=== PATIENT | male | born 1995 | race Caucasian/White ===

== ENCOUNTER 2018-08-19 15:04 | Inpatient (IN) | payer MEDICAID ==
[~2018-08-19] VITALS: Ht 147.3 cm; Wt 33.6 kg
[2018-08-19 15:15] VITALS: BP 126/71
--- NOTE | 2018-08-19 15:25 | NUR ---
PT TO ER BED 6
--- NOTE | 2018-08-19 15:25 | NUR ---
PT WHEELCHAIRED ONTO BED BY PARENTS
--- NOTE | 2018-08-19 15:40 | NUR ---
BIB PARENTS WITH HISTORY OF CPJARAD NON VERBAL AT BASELINE. PARENTS STATE HE HAS BEEN COUGHING AND HAS HAD A FEVER SINCE LAST NIGHT. PARENTS STATES THAT "THEY CAN TELL HE IS IN PAIN". FLACC 0 AT THIS TIME. PATIENT SITTING UP IN BED. PLACED ON 2L NC. SPO2 AT 97%.
[2018-08-19] MEDS ORDERED: NACL 0.9% 2,000 ML IV SCH (16:21)
[2018-08-19] MEDS ORDERED: LORazepam 2 MG/ML VIAL IVP ONE (16:25)
[2018-08-19] MEDS ORDERED: PIPERACILLIN/TAZOBACTAM 3.375 GM in DEXT 5% MINI-BAG PLUS 50 ML IV ONE (16:25)
[2018-08-19] MEDS ORDERED: ALBUTEROL SULFATE/IPRATROPIU 3 ML SOL IH ONE (16:25)
[2018-08-19] MEDS ORDERED: IBUPROFEN CHILDRENS 100 MG/5 ML UDC PO ONE (16:25)
--- NOTE | 2018-08-19 16:25 | NUR ---
PATIENT GIVEN MOTRIN THROUGH PATENT G TUBE. FLUSHES EASILY; NO RESIDUAL NOTED.
--- NOTE | 2018-08-19 16:35 | NUR ---
attempted to obtain iv access unable to obtain. asked for assistance from charge nurse rn.
[2018-08-19] MEDS ORDERED: PIPERACILLIN/TAZOBACTAM 3.375 GM VIAL IV ONE (16:58)
[2018-08-19] MEDS ORDERED: NACL 0.9% 1,000 ML IV SCH (17:26)
[2018-08-19] MEDS ORDERED: MORPHINE SULFATE 2 MG/ML SYR IVP PRN (17:30)
[2018-08-19] MEDS ORDERED: ZOLPIDEM 5 MG TAB PO PRN (17:30)
[2018-08-19] MEDS ORDERED: LORazepam 2 MG/ML VIAL IM/IVP PRN (17:30)
[2018-08-19] MEDS ORDERED: ONDANSETRON 4 MG/2 ML VIAL IM/IVP PRN (17:30)
[2018-08-19] MEDS ORDERED: HYDROcodone/APAP 5/325 MG 1 TAB TAB PO PRN (17:30)
[2018-08-19] MEDS ORDERED: DOCUSATE SODIUM 100 MG GELCAP PO PRN (17:30)
--- NOTE | 2018-08-19 17:30 | NUR ---
spoke with admitting residents who stated they would obtain a central line when the patient made it to the floor. will not give any IV medications ordered. Dr. Green made aware.
[2018-08-19 17:47] LABS: BASOPHILS % (AUTO) 0.5 % (0.0-2.0); EOSINOPHILS % (AUTO) 0.5 % (0.0-4.0); HEMATOCRIT 41.4 % (36-52); HEMOGLOBIN 13.6 g/dL (12.0-18.0); LYMPHOCYTES # (AUTO) 0.3 K/uL (2.0-11.5); LYMPHOCYTES % (AUTO) 3.4 % (20.5-51.1); MEAN CORPUSCULAR HEMOGLOBIN 32 pg (27-31); MEAN CORPUSCULAR HGB CONC 33 g/dL (33-37); MEAN CORPUSCULAR VOLUME 96.6 fL (80-94); MONOCYTES # (AUTO) 0.8 K/uL (0.8-1.0); MONOCYTES % (AUTO) 9.8 % (1.7-9.3); NEUTROPHILS # (AUTO) 7.3 K/uL (1.8-7.7); NEUTROPHILS % (AUTO) 85.8 % (42.2-75.2); PLATELET COUNT (AUTO) 107 K/uL (140-450); RED BLOOD CELL COUNT(AUTO) 4.29 MIL/uL (4.20-6.10); RED CELL DISTRIBUTION WIDTH 13.7 % (11.6-13.7); WHITE BLOOD COUNT (AUTO) 8.6 K/uL (4.8-10.8)
[2018-08-19 17:57] LABS: ANION GAP 12.6 (8-16); CARBON DIOXIDE 30.3 mmol/L (21-32); CREATININE 1.1 mg/dL (0.7-1.3); POTASSIUM 3.9 mmol/L (3.5-5.1)
[2018-08-19 18:03] LABS: ALBUMIN 3.4 g/dL (3.4-5.0); TOTAL BILIRUBIN 0.2 mg/dL (0.0-1.0)
[2018-08-19 18:05] LABS: PROTHROMBIN TIME 13.7 secs (10.8-13.4)
[2018-08-19 18:27] LABS: MAGNESIUM 2.1 mg/dL (1.8-2.4); PHOSPHORUS 3.8 mg/dL (2.5-4.9); THYROID STIMULATING HORMONE 0.55 uIU/mL (0.34-3.74)
[2018-08-19 18:30] VITALS: BP 104/59
--- NOTE | 2018-08-19 18:30 | NUR ---
RECEIVED REPORT FROM ED RN. DX PNA. COARSE LUNG SOUNDS. TACHYCARDIC. NO S/S ACUTE DISTRESS. SATURATING WELL ON 4L NC. NO IV ACCESS- AWARE. PER ED RN, WILL PLACE CENTRAL LINE. INTRODUCED SELF AND EXPLAINED POC TO FAMILY MEMBERS AT BEDSIDE. ALL SAFETY PRECAUTIONS IN PLACE, WILL CONTINUE TO MONITOR.
--- NOTE | 2018-08-19 18:30 | NUR ---
PATIENT ADMITTED TO THE CA[facility] OF DR MARTIN ON TELE FLOOR ROOM 122-B. REPORT GIVEN TO CHARLA ALCANTAR, PATIENT STABLE DURING TRANSFER.
--- NOTE | 2018-08-19 18:39 | NUR ---
UNABLE TO ADMINISTER ANY IV MEDICATIONS. NO IV ACCESS AVAILABLE. AWARE AND PLAN TO PLACE CENTRAL LINE. DR. NAYLOR AT BEDSIDE NOW TO ASSESS PT AND SPEAK WITH FAMILY.
--- NOTE | 2018-08-19 19:02 | NUR ---
NOTIFIED DR. NAYLOR THAT INFLUENZA SWAB NOT COLLECTED. DR. NAYLOR TO RE-ORDER.
--- NOTE | 2018-08-19 19:30 | NUR ---
ASSUMED CARE OF PATIENT. ADMITTED TO 122B VIA GURNEY FROM ER. SEE ADMISSION ASSESSMENT AND HISTORY. CARE BOARD UPDATED. PLAN OF CARE DISCUSSED WITH FAMILY MEMBER. CALL LIGHT WITHIN REACH.
--- NOTE | 2018-08-19 19:41 | NUR ---
ENDORSED POC TO AUTOMATED TELLER MANAGER RN. PT IN STABLE CONDITION. Addendum: 08/19/18 at 1949 by Karine Pollard Meng RN ENDORSED IV INSERTION.
[2018-08-19] MEDS ORDERED: CLON1TAB GT (19:54)
[2018-08-19] MEDS ORDERED: [UNRECOGNIZED DRUG - CODE] GT (19:54)
[2018-08-19] MEDS ORDERED: BACL10TA4 GT (19:54)
[2018-08-19] MEDS ORDERED: CARB100S PO (19:54)
--- NOTE | 2018-08-19 20:00 | NUR ---
PERICAR DONE, REPOSITIONED BY LINOTYPE WORKER. HOB ELEVATED AT ALL TIMES. VITAL SIGNS STABLE. CALL LIGHT WITHIN REACH.
[2018-08-19] MEDS: PIPER/TAZO 3.375GM/D5W PREMIX 50 ML IV SCH (20:57)
[2018-08-19] MEDS: clonazePAM 0.5 MG TAB GT SCH (20:59)
[2018-08-19] MEDS: BACLOFEN 10 MG TAB GT SCH (20:59)
[2018-08-19] MEDS: DEXT 5% / NACL 0.45% 1,000 ML IV SCH (20:59)
--- NOTE | 2018-08-19 21:30 | NUR ---
ATTEMPTED TO DRAW BLOOD BY SLA, TRAVEL CONSULTANT, UNSUCCESSFUL, AND TRY AGAIN, PATIENT FATHER VERBALIZED "YOU DONT KNOW WHAT YOU ARE DOING AND REFUSED.
--- NOTE | 2018-08-19 23:00 | NUR ---
SECOND ATTEMPT TO DRAW LACTIC ACID ORDERED BY RAY PERSONNEL ADVISER, UNSUCCESSFUL. DR. NAYLOR RESIDENT MD MADE AWARE.
[2018-08-19 23:54] VITALS: BP 116/70
--- NOTE | 2018-08-20 | NUR ---
VITALS SIGNS STABLE. NO COMPLAINS. AFEBRILE. NOTED. CALL LIGHT WITHIN REACH.
--- NOTE | 2018-08-20 02:57 | NUR ---
I WAS CALLED FOR THE PT IN ROOM 122, BECAUSE HIS MOTHER WANTS THE HHNTX, BUT PT IS NOT WHEEZING , BS ARE CLEAR, ONLY LIGHT CONGESTION AND PLACE PT ON OX WITH WATER HUMIDITY 2 L NC.
[2018-08-20] MEDS: PIPER/TAZO 3.375GM/D5W PREMIX 50 ML IV SCH ×3 (04:25→20:47)
[2018-08-20 04:35] VITALS: BP 95/53
--- NOTE | 2018-08-20 07:20 | NUR ---
RECEIVED PT REPORT AT BEDSIDE. PT IS AWAKE IN BED, MOM AT BEDSIDE. MITTEN NOTED ON THE R HAND. IV SITE NOTED ON R FA, 24 G, INFUSING D5 1/2 NS 80 ML/HR. PT ON 2 L HUMIDIFIED O2 NC. PT HAS A G-TUBE SITE THROUGH WHICH ALL MEDICATIONS ARE ADMINISTERED. FLU VACCINE IS UP TO DATE. FALL PRECAUTIONS IN PLACE. WILL CONTINUE TO MONITOR PT.
--- NOTE | 2018-08-20 07:21 | NUR ---
ENDORSED CARE AT BEDSIDE WITH JOSE MANUEL DUNHAM, PATIENT IN STABLE CONDITION.
--- NOTE | 2018-08-20 07:53 | NUR ---
PATIENT HAS BEEN SCREENED AND CATEGORIZED HIGH NUTRITION RISK. PATIENT WILL BE SEEN WITHIN 1-2 DAYS OF ADMISSION. 08/20/18-08/21/[address]
[2018-08-20] MEDS: clonazePAM 0.5 MG TAB GT SCH ×2 (07:58→20:45)
[2018-08-20] MEDS: BACLOFEN 10 MG TAB GT SCH ×2 (07:58→20:43)
[2018-08-20] MEDS: ACETAMINOPHEN 325 MG TAB PO PRN ×2 (07:58→22:47)
[2018-08-20 08:00] VITALS: BP 96/69
--- NOTE | 2018-08-20 08:30 | NUR ---
PT HAS FEVER 101.0. TYLENOL ADMINISTERED AND ICE PACK PLACED. CHARGE NURSE AWARE, WILL NOTIFY MD. PT'S MOM IS AT BEDSIDE.
[2018-08-20] MEDS: DEXT 5% / NACL 0.45% 1,000 ML IV SCH ×2 (09:15→21:45)
[2018-08-20] MEDS: ALBUTEROL SULFATE/IPRATROPIU 3 ML SOL IH PRN (10:04)
--- NOTE | 2018-08-20 10:15 | NUR ---
PARENTS AT BEDSIDE AT THIS TIME
--- NOTE | 2018-08-20 10:35 | NUR ---
RECHECKED PT'S TEMPERATURE, 99.6 AT THIS TIME (TEMPORAL). RECEIVED CALL FROM LAB, PT IS POSITIVE FOR FLU A, NEGATIVE FOR FLU B. DROPLET ISOLATION IN PLACE. IS AWARE. ALSO AWARE OF PT'S FEVER OF 101 THIS AM.
[2018-08-20 12:00] VITALS: BP 94/55
--- NOTE | 2018-08-20 12:39 | NUR ---
CONSENT OBTAINED FROM PT'S FATHER FOR R IJ CENTRAL LINE PLACEMENT.
--- NOTE | 2018-08-20 14:38 | NUR ---
PT'S TEMPERATURE IS 99.5 AT THIS TIME. ICE PACK PLACED ON FOREHEAD, AND ROOM COOLING DOWN. FATHER AT BEDSIDE. WILL CONTINUE TO MONITOR.
[2018-08-20] MEDS ORDERED: LORazepam 2 MG/ML VIAL IVP SCH (15:00)
--- NOTE | 2018-08-20 15:16 | NUR ---
08/20/18 RD INITIAL ASSESSMENT COMPLETED PLEASE REFER TO NUTRITION ASSESSMENT UNDER CARE ACTIVITY FOR ESTIMATED NUTRITIONAL NEEDS. 1. RECOMMEND ARMANI 1.2 AT 40 ML/HR AND 60 ML WATER FLUSH Q4H -THIS WILL PROVIDE A VOLUME OF 960 ML, 1152 KCAL, 72 GM OF PROTEIN AND 1138 ML FLUID. IT MEETS 100% OF THE ENERGY AND PROTEIN REQUIREMENT. 2. RECOMMEND MVI 3. RD TO FOLLOW-UP 2-3 DAYS, HIGH RISK ANDERSON BOO, CONSUELO
[2018-08-20 16:00] VITALS: BP 100/69
--- NOTE | 2018-08-20 16:09 | NUR ---
PT HAVING US GUIDED R IJ CENTRAL LINE PLACEMENT AT THIS TIME BY DR MENDIOLA.
--- NOTE | 2018-08-20 19:20 | NUR ---
RECEIVED ENDORSEMENT FROM DAYSHIFT RN AT BEDSIDE FOR CONTINUITY OF CARE, PT IN STABLE CONDITION.
--- NOTE | 2018-08-20 19:20 | NUR ---
PT ENDORSED TO RESEARCH ANTHROPOLOGIST IN STABLE CONDITION.
--- NOTE | 2018-08-20 19:30 | NUR ---
ASKED DR NAYLOR TO RESTART RESTRAINT ORDER FOR PT AT 19:50. PT STILL PULLING AT IV LINES WHEN AWAKE.
--- NOTE | 2018-08-20 20:00 | NUR ---
PT IN BED WITH ALL FALLS, SEIZURE AND ASPIRATION PRECAUTIONS IN PLACE. PT IS AOX1 HE HAS A TRIPLE LUMEN IJ ON RIGHT SIDE OF NECK. PT HAS MITT IN PLACE TO PREVENT PULING AT IV LINE AND CENTRAL LINE. IV FLUID OF D51/2 NS AT 80MLS/HR RUNNING ORDERED. PT ALSO HAS G TUBE IN PLACE AND FLUSHED PATENT.V/S FOLLOWS T 100.3 P 120 R 18 B/P 108/80 02 96% WITH 4LITERS VIA N/C. FAMILY AT BEDSIDE.
[2018-08-20] MEDS: carBAMazepine 200 MG TAB PO SCH (20:48)
[2018-08-20] MEDS: OSELTAMIVIR PHOSPHATE 75 MG CAP PO SCH (20:48)
--- NOTE | 2018-08-20 21:00 | NUR ---
PT GIVEN DUE MEDS OF KLONOPIN, BACLOFEN, TAMIFLU AND ZOSYN IV ABT ORDERED. DR. NAYLOR CONCERNED THAT PT AGITATION IS DUE TO CENTRAL LINE PLACEMENT. DR. NAYLOR TO ORDER ATIVAN AND SHE WILL PULL OUT CATHETER 2CM AND RECHECK PLACEMENT. ATIVAN WAS ORDERED TO BE GIVEN BEFORE DOCTOR EXAMINES CENTRAL LINE.
[2018-08-20] MEDS ORDERED: LORazepam 2 MG/ML VIAL IM/IVP SCH (22:00)
--- NOTE | 2018-08-20 22:45 | NUR ---
DR. NAYLOR AT BEDSIDE EXAMINING CENTRAL LINE. PT GIVEN 1MG OF ATIVAN VIA CENTRAL LINE IJ. AFTER GOWNING AND GLOVING, DR. NAYLOR PULLED OF DRESSING AND PULLED CENTRAL CATH OUT 2CM. DR. NAYLOR ORDERED X-RAY TO BE DONE AT BEDSIDE STAT.
--- NOTE | 2018-08-20 23:00 | NUR ---
STAT X-RAY DONE AT BEDSIDE. PT ALSO GIVEN PRN MEDS OF TYLENOL FOR MILD DISCOMFORT, COLACE DUE TO FAMILY C/O OF NO BM OVER 24HRS. ICE PACKS PROVIDED FOR UNDERARMS AND HEAD TO PROVIDE COOLING MEASURES. FAMILY AT BEDSIDE. WILL CONTINUE TO MONITOR PT FOR INCREASED TEMP, S/S OF PAIN OR AGGITATION AND BM. FAMILY AT BEDSIDE.
--- NOTE | 2018-08-21 00:13 | NUR ---
X-RAY OF NECK SHOWS THAT CENTRAL LINE ALTHOUGH PULLED BACK, STILL REMAINS IN RIGHT ANTRUM OF HEART. DR. NAYLOR PULLED BACK CENTRAL LINE MORE SUTURED AREA AND WILLL ORDERED X-RAY TO CONFIRM RIGHT PLACEMEN.T
--- NOTE | 2018-08-21 01:00 | NUR ---
PT IN BED RESTING SOUNDLY. V/S FOLLOWS T 99.0 P 96 R 16 B/P 80/42 02 97% ON 2LITERS VIA N/C. FAMILY AT BEDSIDE. PT IS DRY BUT FAMILY DECLINES PT TO BE REPOSITIONED AT HIS TIME.
[2018-08-21 02:49] VITALS: BP 108/80
--- NOTE | 2018-08-21 05:00 | NUR ---
PT TURNED AND REPOSITIONED. ALL FALLS, ASPIRATION AND SEIZURE PRECAUTIONS IN PLACE. LAS V/S ARE T 98.21 P 105 R 16 B/P 82/48 02 98 WITH 2 LITERS VIA N/C. TEGRETOL AND IV ZOSYN GIVEN ORDERED. NO S/S OF PAIN OR DISTRESS NOTED. ORAL CARE PROVIDED. PT SUCTIONED X1 AFTER PRODUCTIVE COUCH. PHLEGM IS CREAMY WHITE. FAMILY AT BEDSIDE.
[2018-08-21] MEDS: PIPER/TAZO 3.375GM/D5W PREMIX 50 ML IV SCH ×3 (05:14→20:11)
[2018-08-21] MEDS: carBAMazepine 200 MG TAB PO SCH ×3 (05:14→20:12)
[2018-08-21] MEDS ORDERED: ALBUTEROL SULFATE/IPRATROPIU 3 ML SOL IH SCH (07:00)
--- NOTE | 2018-08-21 07:10 | NUR ---
RECEIVED BEDSIDE REPORT FROM CHARLA FUCHS. PT STABLE, SLEEPING, BUT EASILY AROUSABLE. MOTHER AT THE BEDSIDE. NO SIGNS OF DISTRESS NOTED. ON 2L O2 VIA NC. NO REDNESS, SWELLING, OR INFLAMMATION NOTED ON IV SITE. BED IN LOWEST POSITION. CALL DENNEY WITHIN REACH. SAFETY MEASURES IN PLACE. PLAN OF CARE REVIEWED.
[2018-08-21 07:18] LABS: BASOPHILS % (AUTO) 0.2 % (0.0-2.0); HEMATOCRIT 38.4 % (36-52); HEMOGLOBIN 12.7 g/dL (12.0-18.0); LYMPHOCYTES # (AUTO) 0.4 K/uL (2.0-11.5); LYMPHOCYTES % (AUTO) 13.2 % (20.5-51.1); MEAN CORPUSCULAR HEMOGLOBIN 32 pg (27-31); MEAN CORPUSCULAR HGB CONC 33 g/dL (33-37); MEAN CORPUSCULAR VOLUME 96.4 fL (80-94); MONOCYTES # (AUTO) 0.1 K/uL (0.8-1.0); MONOCYTES % (AUTO) 2.4 % (1.7-9.3); NEUTROPHILS # (AUTO) 2.8 K/uL (1.8-7.7); NEUTROPHILS % (AUTO) 84.2 % (42.2-75.2); PLATELET COUNT (AUTO) 93 K/uL (140-450); RED BLOOD CELL COUNT(AUTO) 3.98 MIL/uL (4.20-6.10); RED CELL DISTRIBUTION WIDTH 14.1 % (11.6-13.7); WHITE BLOOD COUNT (AUTO) 3.3 K/uL (4.8-10.8)
[2018-08-21 07:29] LABS: MAGNESIUM 1.9 mg/dL (1.8-2.4); PHOSPHORUS 3.4 mg/dL (2.5-4.9)
[2018-08-21 07:30] LABS: ANION GAP 10.3 (8-16); CARBON DIOXIDE 30.2 mmol/L (21-32); POTASSIUM 3.5 mmol/L (3.5-5.1)
[2018-08-21 08:00] VITALS: BP 90/50
--- NOTE | 2018-08-21 08:30 | NUR ---
NASOTRACHEAL SUCTIONED PATIENT WITHOUT INCIDENT. OBTAINED ORDERED SPUTUM SPECIMEN USING STERILE TECHNIQUE. PATIENT SPONTANEOUSLY EXPECTORATED A LARGE AMOUNT OF GREEN/YELLOW SECRETIONS- ORALLY SUCTIONED. SPECIMEN SENT TO LAB.
[2018-08-21] MEDS ORDERED: carBAMazepine 200 MG TAB PO SCH (09:00)
[2018-08-21] MEDS: clonazePAM 0.5 MG TAB GT SCH ×2 (09:00→20:23)
[2018-08-21] MEDS: ACETAMINOPHEN 325 MG TAB PO PRN ×2 (10:24→20:11)
[2018-08-21] MEDS: LACTOBACILLUS RHAMNOSUS GG 1 EACH CAP PO SCH (10:24)
--- NOTE | 2018-08-21 10:24 | NUR ---
ADMINISTERED TYLENOL FOR FEVER OF 101.4 WILL CONTINUE TO MONITOR.
[2018-08-21] MEDS: OSELTAMIVIR PHOSPHATE 75 MG CAP PO SCH ×2 (10:25→20:12)
[2018-08-21] MEDS: BACLOFEN 10 MG TAB GT SCH ×2 (10:25→20:12)
[2018-08-21] MEDS: NACL 0.9% 1,000 ML IV SCH ×2 (10:29→17:11)
--- NOTE | 2018-08-21 10:30 | NUR ---
ADMINISTERED SCHEDULED MEDICATIONS. PT TOLERATED WELL. FAMILY AT THE BEDSIDE. TUBE FEEDING VITAL AF 1.2 STARTED, URINE CULTURE OBTAINED. NO OTHER NEEDS AT THIS TIME.
[2018-08-21 12:00] VITALS: BP 82/45
[2018-08-21 12:39] LABS: APPEARANCE,URINE SL CLOUDY (CLEAR); BILIRUBIN,URINE NEGATIVE (NEGATIVE); BLOOD, URINE NEGATIVE (NEGATIVE); COLOR,URINE YELLOW (YELLOW); LEUKOCYTE ESTERASE ,URINE NEGATIVE (NEGATIVE); NITRITE, URINE NEGATIVE (NEGATIVE); PH,URINE 5.5 (5.0-9.0); UGLUCOSE NEGATIVE (NEGATIVE)
[2018-08-21 12:51] LABS: RBC,URINE 0-5 /HPF (0-5); WBC,URINE 0-5 /HPF (0-5)
[2018-08-21 12:52] LABS: URINE AMORPHOUS URATE 2+ /HPF (None Seen)
[2018-08-21] MEDS: ACETYLCYSTEINE 10% (100 MG/ML) 100 MG/ML VIAL INH SCH ×2 (13:00→19:00)
[2018-08-21] MEDS ORDERED: NACL 0.9% 500 ML IV SCH (13:29)
--- NOTE | 2018-08-21 13:38 | NUR ---
BOLUS OF 500ML NS STARTED PER MD ORDER FOR BP OF 88/50. ADMINISTERED SCHEDULED MEDICATIONS PER MD ORDER. PT TOLERATED WELL. NO OTHER NEEDS AT THIS TIME. WILL ADMINISTER ZOSYN AFTER 500ML NS BOLUS IS FINISHED.
[2018-08-21] MEDS: ALBUTEROL SULFATE/IPRATROPIU 3 ML SOL IH PRN (14:21)
--- NOTE | 2018-08-21 14:45 | NUR ---
BP DOWN TO 82/46, DR. JONNY OLGUIN, RECEIVED NEW ORDERS.
[2018-08-21] MEDS ORDERED: NACL 0.9% 1,000 ML IV SCH (15:10)
--- NOTE | 2018-08-21 15:25 | NUR ---
BOLUS OF 1,000 ML NS STARTED PER MD ORDER FOR BP OF 82/46. WILL MONITOR PT.
[2018-08-21 16:00] VITALS: BP 121/58
--- NOTE | 2018-08-21 16:00 | NUR ---
TUBE FEEDING RESIDUAL OF 150 ML. WILL HOLD TUBE FEEDING AND RE-CHECK IN ONE HOUR Addendum: 08/21/18 at 1903 by Randy Petersen RN 121/[id number] OLGUIN.
--- NOTE | 2018-08-21 17:17 | NUR ---
ADMINISTERED SCHEDULED MEDICATIONS, PT TOLERATED WELL. HELD TUBE FEEDING FOR RESIDUAL OF 100ML.
--- NOTE | 2018-08-21 19:10 | NUR ---
ENDORSED PT TO CHARLA DOTY FOR CONTINUITY OF CARE. PT STABLE, SLEEPING, BUT EASILY AROUSABLE.
--- NOTE | 2018-08-21 19:11 | NUR ---
REPORT RECEIVED FROM AM NURSE AT BEDSIDE. PT IN STABLE CONDITION. AAOX1. INTRODUCED SELF TO PT. BOARD UPDATED. FLACC 0. NO SOB. ON 2L O2 VIA NC. PT HAS A TEMPERATURE OF 100.0. WILL MEDICATE. IV SITE R IJ CENTRAL LINE TRIPLE LUMEN ALL 3 PORTS FLUSHES WELL PATENT AND INTACT. SKIN WARM, DRY, AND INTACT WITH NO OPEN WOUNDS. BED LOCKED IN LOW POSITION. CALL DENNEY WITHIN REACH. SAFETY PRECAUTIONS IN PLACE. SEIZURE PRECAUTIONS IN PLACE. ALL NEEDS MET AT THIS TIME.
[2018-08-21 20:00] VITALS: BP 106/66
[2018-08-21] MEDS ORDERED: BISACODYL 10 MG SUPP RC SCH (20:00)
--- NOTE | 2018-08-21 20:11 | NUR ---
KLONOPIN, LIORESAL, TAMIFLU, TEGRETOL, AND TYLENOL GIVEN THROUGH GTUBE. DULCOLAX SUPPOSITORY GIVEN. YORDAN SIDDIQUI AND RUNNING. HEPARIN HELD DUE TO LOW PLATELET COUNT. PT TOLERATED WELL. PT RESIDUAL 150ML. FEEDING HELD. Addendum: 08/21/18 at 2314 by Dmitriy Lawson RN SAID IT IS OK TO GIVEN HEPARIN.
[2018-08-21] MEDS: ALBUTEROL SULFATE/IPRATROPIU 3 ML SOL IH SCH (20:23)
--- NOTE | 2018-08-21 21:00 | NUR ---
HEPARIN GIVEN WITH PLT OF 97. SAID IT IS OK TO BE GIVEN.
--- NOTE | 2018-08-21 22:00 | NUR ---
RESIDUAL OF 100ML. FEEDING HELD.
--- NOTE | 2018-08-21 22:00 | NUR ---
NOTIFIED OF WRIST RESTRAINT ORDER TO BE RENEWED. NEW ORDER.
--- NOTE | 2018-08-21 23:00 | NUR ---
RESIDUAL OF 75ML. FEEDING HELD.
--- NOTE | 2018-08-21 23:10 | NUR ---
BP OF 88/40. MD NOTIFIED. ORDERED 250ML NS BOLUS.
[2018-08-21] MEDS ORDERED: NACL 0.9% 250 ML IV ONE (23:30)
--- NOTE | 2018-08-21 23:31 | NUR ---
250ML NS BAG HUNG FOR BOLUS.
[2018-08-22] VITALS: BP 88/40
--- NOTE | 2018-08-22 01:00 | NUR ---
250ML BOLUS GIVEN. BP INCREASED TO 86/52. MD NOTIFIED. NEW ORDER OF NS INCREASED FROM 50ML/HR TO 100ML/HR AND MONITOR.
--- NOTE | 2018-08-22 01:15 | NUR ---
RESIDUAL IS NOW AT 10ML. FEEDING STARTED.
[2018-08-22] MEDS: ALBUTEROL SULFATE/IPRATROPIU 3 ML SOL IH SCH ×5 (01:43→23:21)
[2018-08-22] MEDS: ACETYLCYSTEINE 10% (100 MG/ML) 100 MG/ML VIAL INH SCH ×4 (01:44→19:38)
--- NOTE | 2018-08-22 01:46 | NUR ---
PATIENT RESTING WELL NO APPARENT SOB NOTED GOOD CHEST RISE MOTHER IN ROOM
--- NOTE | 2018-08-22 03:30 | NUR ---
PT SLEEPING COMFORTABLY. NO S/S OF DISTRESS NOTED. BREATHING EVEN, UNLABORED, AND WNL. WILL CONTINUE TO MONITOR.
[2018-08-22 04:00] VITALS: BP 100/64
[2018-08-22] MEDS: carBAMazepine 200 MG TAB PO SCH (05:11)
[2018-08-22] MEDS: PIPER/TAZO 3.375GM/D5W PREMIX 50 ML IV SCH ×3 (05:11→21:55)
--- NOTE | 2018-08-22 05:11 | NUR ---
YORDAN SIDDIQUI AND RUNNING. TEGRETOL GIVEN THROUGH GTUBE. PT TOLERATED WELL. Addendum: 08/22/18 at 0654 by Dmitriy Lawson RN RESIDUAL 15ML.
--- NOTE | 2018-08-22 06:15 | NUR ---
BLOOD DRAWN FROM CENTRAL LINE. LINE FLUSHES WELL.
--- NOTE | 2018-08-22 07:20 | NUR ---
REPORT GIVEN TO AM NURSE AT BEDSIDE. PT IN STABLE CONDITION.
--- NOTE | 2018-08-22 07:25 | NUR ---
RECEIVED BEDSIDE REPORT FROM EXERCISE SPECIALIST RN FOR CONTINUITY OF CARE. PT IN STABLE CONDITION. FLACC 0. NO S/S DISTRESS. RESPIRATIONS EVEN AND UNLABORED. RHONCHI BILATERALLY. SATURATING 98% ON 2L NC. HEART RHYTHM REGULAR. ACTIVE BS IN ALL QUADRANTS. ABDOMEN SOFT AND NON-DISTENDED. GTUBE FEEDINGS RUNNING CONTINUOUSLY. SKIN INTACT. PT IS BEDBOUND. RT IJ CENTRAL LINE TRIPLE LUMEN PATENT AND ASYMPTOMATIC, INFUSING IVF PER MD ORDERS. ALL SAFETY PRECAUTIONS IN PLACE, WILL CONTINUE TO MONITOR.
[2018-08-22 07:41] LABS: BASOPHILS % (AUTO) 0.2 % (0.0-2.0); HEMATOCRIT 36.1 % (36-52); HEMOGLOBIN 11.9 g/dL (12.0-18.0); LYMPHOCYTES # (AUTO) 0.7 K/uL (2.0-11.5); LYMPHOCYTES % (AUTO) 14.3 % (20.5-51.1); MEAN CORPUSCULAR HEMOGLOBIN 32 pg (27-31); MEAN CORPUSCULAR HGB CONC 33 g/dL (33-37); MEAN CORPUSCULAR VOLUME 96.9 fL (80-94); MONOCYTES # (AUTO) 0.2 K/uL (0.8-1.0); MONOCYTES % (AUTO) 4.6 % (1.7-9.3); NEUTROPHILS % (AUTO) 80.9 % (42.2-75.2); PLATELET COUNT (AUTO) 72 K/uL (140-450); RED BLOOD CELL COUNT(AUTO) 3.73 MIL/uL (4.20-6.10); RED CELL DISTRIBUTION WIDTH 14.3 % (11.6-13.7)
[2018-08-22 08:00] VITALS: BP 100/67
[2018-08-22 08:09] LABS: ANION GAP 9.9 (8-16); CARBON DIOXIDE 27.4 mmol/L (21-32); POTASSIUM 3.3 mmol/L (3.5-5.1)
--- NOTE | 2018-08-22 08:13 | NUR ---
RECEIVED PATIENT ON 2L NC WITH BUBBLE HUMIDIFICATION. PULSE OX SAT 98%. FAMILY AT BEDSIDE. SCHEDULED BREATHING TREATMENTS ADMINISTERED. CPT GIVEN WITH TX. TOLERATED THERAPY WELL, NO ADVERSE SIDE EFFECTS. ORALLY SUCTIONED A SCANT AMOUNT OF SECRETIONS. WILL CONTINUE TO MONITOR.
[2018-08-22 08:21] LABS: PHOSPHORUS 2.3 mg/dL (2.5-4.9)
[2018-08-22] MEDS: BACLOFEN 10 MG TAB GT SCH ×2 (08:56→21:54)
[2018-08-22] MEDS: clonazePAM 0.5 MG TAB GT SCH ×2 (08:58→22:01)
[2018-08-22] MEDS: LACTOBACILLUS RHAMNOSUS GG 1 EACH CAP PO SCH (08:59)
[2018-08-22] MEDS: OSELTAMIVIR PHOSPHATE 75 MG CAP PO SCH ×2 (08:59→21:54)
--- NOTE | 2018-08-22 09:07 | NUR ---
FAMILY AT BEDSIDE REQUESTING FOR PATIENT TO BE SUCTIONED. PATIENT BREATH SOUNDS RHONCHI. NASOTRACHEALLY SUCTIONED PATIENT WITHOUT INCIDENT. SUCTIONED LARGE AMOUNT OF THICK YELLOW SECRETIONS. WILL CONTINUE TO MONITOR.
--- NOTE | 2018-08-22 09:13 | NUR ---
PER MOTHER AT BEDSIDE WHO ACTIVELY PARTICIPATES IN PATIENT'S CARE, SHE WOULD LIKE THE TUBE FEEDING STOPPED BECAUSE PATIENT PRODUCES A LOT OF SECRETIONS WHILE SICK WITH TUBE FEEDING. WILL NOTIFY
--- NOTE | 2018-08-22 09:16 | NUR ---
HEPARIN SUBQ NOT GIVEN. PLT 72. NO S/S BLEEDING. WILL CONTINUE TO MONITOR.
--- NOTE | 2018-08-22 09:24 | NUR ---
NOTIFIED DR. MENDIOLA THAT PT'S MOTHER DOES NOT WANT TUBE FEEDING TO BE CONTINUED. DR. MENDIOLA TO SPEAK WITH PT'S MOTHER. ALSO NOTIFIED DR. MENDIOLA OF K+ 3.3. Addendum: 08/22/18 at 1825 by Karine Pollard Meng, RN TUBE FEEDING WAS PAUSED AT THIS TIME.
--- NOTE | 2018-08-22 09:45 | NUR ---
FAMILY STATES THEY WOULD LIKE PATIENT TRANSFERRED TO [place]. NOTIFIED DR. LORENZ- HE WILL SPEAK WITH FAMILY.
[2018-08-22] MEDS: DEXT 5% /NACL 0.9% 1,000 ML IV SCH ×2 (10:07→20:00)
[2018-08-22 12:00] VITALS: BP 97/64
[2018-08-22] MEDS: KCL 20 MEQ/WATER INJ PREMIX 100 ML IV SCH ×2 (12:44→15:08)
--- NOTE | 2018-08-22 13:34 | NUR ---
OBTAINED [facility] FAX NUMBER FROM CHRISTIANO GRIMM. FAXED H&P AND TRANSFER ORDER TO [facility].
--- NOTE | 2018-08-22 14:12 | NUR ---
FAMILY AT BEDSIDE. SCHEDULED BREATHING TREATMENTS ADMINISTERED. TOLERATED TREATMENTS WELL. NO ADVERSE SIDE EFFECTS. CPT GIVEN WITH TREATMENT. ORALLY SUCTIONED SMALL AMOUNT OF SPONTANEOUSLY EXPECTORATED, THICK YELLOW SECRETIONS. PLACED PATIENT BACK ON 2L NC. NO RESPIRATORY DISTRESS NOTED AT THIS TIME. WILL CONTINUE TO MONITOR.
--- NOTE | 2018-08-22 14:51 | NUR ---
[facility] NOT [facility]SFER FOR REASONS OF FAMILY REQUEST.
[2018-08-22 16:00] VITALS: BP 109/80
--- NOTE | 2018-08-22 16:42 | NUR ---
ADMINISTERED SCHEDULED MEDICATIONS PER MD ORDERS. PT IN STABLE CONDITION. FAMILY MEMBERS AT BEDSIDE.
--- NOTE | 2018-08-22 18:05 | NUR ---
NOTIFIED RT THAT THERE IS RHONCHI ALL BILATERALLY IN ALL LOBES. RR 22, SPO2 95% ON 2L NC CURRENTLY. Addendum: 08/22/18 at 1806 by Kraine Pollard Meng, RN NOTIFIED RT THAT THERE IS RHONCHI BILATERALLY IN ALL LOBES. RR 22, SPO2 95% ON 2L NC CURRENTLY.
--- NOTE | 2018-08-22 19:28 | NUR ---
ENDORSED POC TO WASTEWATER TREATMENT SUPERVISOR RN. PT IN STABLE CONDITION.
--- NOTE | 2018-08-22 19:29 | NUR ---
REPORT RECEIVED FROM AM NURSE AT BEDSIDE. PT IN STABLE CONDITION. AAOX1. INTRODUCED SELF TO PT AND FAMILY. BOARD UPDATED. FLACC 0. NO SOB. ON 2L O2 VIA HUMIDIFIED NC. AFEBRILE. IV SITE R IJ TRIPLE LUMEN RUNNING D5NS@100ML/HR PATENT AND INTACT. SKIN WARM, DRY, AND INTACT WITH NO OPEN WOUNDS. PT HAS GTUBE THAT IS PATENT AND INTACT. BED LOCKED IN LOW POSITION. CALL DENNEY WITHIN REACH. SAFETY PRECAUTIONS IN PLACE. SEIZURE PRECAUTION IN PLACE. ALL NEEDS MET AT THIS TIME.
[2018-08-22 20:00] VITALS: BP 129/83
--- NOTE | 2018-08-22 20:10 | NUR ---
MD IN TO SEE PT FAMILY PER FAMILY REQUEST ABOUT PLAN OF CARE.
--- NOTE | 2018-08-22 21:55 | NUR ---
KLONIPIN, LIORESAL, AND TAMIFLU GIVEN THROUGH GTUBE. ZOSYN HUNG AND RUNNING. HEPARIN HELD DUE TO PLT COUNT OF 72.
--- NOTE | 2018-08-22 22:40 | NUR ---
RADIOLOGY IN TO DO KUB ON PT.
--- NOTE | 2018-08-22 22:56 | NUR ---
SIMETHICONE TABLET GIVEN THROUGH GTUBE. PT TOLERATED WELL.
[2018-08-22] MEDS ORDERED: SIMETHICONE 80 MG TAB.CHEW GT SCH (23:00)
[2018-08-22] MEDS ORDERED: SODIUM PHOSPHATE 118 ML ENEM RC SCH ×2 (23:00→23:30)
[2018-08-22] MEDS ORDERED: BISACODYL 10 MG SUPP RC SCH (23:00)
[2018-08-23] VITALS: BP 92/61
--- NOTE | 2018-08-23 01:30 | NUR ---
PT SLEEPING COMFORTABLY WITH PARENT AND BEDSIDE. NO S/S OF DISTRESS NOTED. BREATHING EVEN, UNLABORED, AND WNL. WILL CONTINUE TO MONITOR.
[2018-08-23] MEDS: ALBUTEROL SULFATE/IPRATROPIU 3 ML SOL IH SCH ×6 (03:13→23:04)
[2018-08-23] MEDS: ACETYLCYSTEINE 10% (100 MG/ML) 100 MG/ML VIAL INH SCH ×6 (03:14→23:04)
--- NOTE | 2018-08-23 03:20 | NUR ---
PT JUST RECEIVED BREATHING TX. PT TOLERATED WELL. O2 SAT@97%. VS STABLE. MOTHER AT BEDSIDE. CHANGED PT'S DIAPER. WILL CONTINUE TO MONITOR.
[2018-08-23 04:00] VITALS: BP 114/72
[2018-08-23] MEDS: PIPER/TAZO 3.375GM/D5W PREMIX 50 ML IV SCH ×3 (04:21→20:56)
--- NOTE | 2018-08-23 04:21 | NUR ---
YORDAN HUNG AND RUNNING. PT TOLERATING WELL.
[2018-08-23] MEDS: DEXT 5% /NACL 0.9% 1,000 ML IV SCH ×2 (06:00→12:27)
[2018-08-23 06:53] LABS: BASOPHILS % (AUTO) 0.2 % (0.0-2.0); HEMATOCRIT 34.1 % (36-52); HEMOGLOBIN 11.5 g/dL (12.0-18.0); LYMPHOCYTES # (AUTO) 0.8 K/uL (2.0-11.5); LYMPHOCYTES % (AUTO) 18.9 % (20.5-51.1); MEAN CORPUSCULAR HEMOGLOBIN 33 pg (27-31); MEAN CORPUSCULAR HGB CONC 34 g/dL (33-37); MONOCYTES # (AUTO) 0.3 K/uL (0.8-1.0); MONOCYTES % (AUTO) 6.4 % (1.7-9.3); NEUTROPHILS % (AUTO) 74.5 % (42.2-75.2); PLATELET COUNT (AUTO) 60 K/uL (140-450); RED BLOOD CELL COUNT(AUTO) 3.51 MIL/uL (4.20-6.10); RED CELL DISTRIBUTION WIDTH 14.3 % (11.6-13.7); WHITE BLOOD COUNT (AUTO) 4.1 K/uL (4.8-10.8)
[2018-08-23 07:04] LABS: ANION GAP 7.4 (8-16); CARBON DIOXIDE 30.9 mmol/L (21-32); CREATININE 0.9 mg/dL (0.7-1.3); POTASSIUM 3.3 mmol/L (3.5-5.1)
--- NOTE | 2018-08-23 07:05 | NUR ---
REPORT GIVEN TO AM NURSE AT BEDSIDE. PT IN STABLE CONDITION.
--- NOTE | 2018-08-23 07:07 | NUR ---
RECEIVED BEDSIDE REPORT FROM NON DESTRUCTIVE TESTING SUPERVISOR RN FOR CONTINUITY OF CARE. PT IN STABLE CONDITION. FLACC 0. NO S/S DISTRESS. RESPIRATIONS EVEN AND UNLABORED. RHONCHI BILATERALLY. HEART RHYTHM REGULAR. ACTIVE BS IN ALL QUADRANTS. ABDOMEN SOFT AND NON-DISTENDED. GTUBE IN PLACE. PT IS NPO X MEDS. SKIN INTACT. PT IS BEDBOUND. RT IJ CENTRAL LINE TRIPLE LUMEN PATENT AND ASYMPTOMATIC, INFUSING IVF PER MD ORDERS. ALL SAFETY PRECAUTIONS IN PLACE, WILL CONTINUE TO MONITOR.
[2018-08-23 07:49] LABS: MAGNESIUM 1.9 mg/dL (1.8-2.4); PHOSPHORUS 1.1 mg/dL (2.5-4.9)
[2018-08-23 08:00] VITALS: BP 102/71
[2018-08-23] MEDS ORDERED: SODIUM PHOSPHATE 118 ML ENEM RC ONE (09:00)
--- NOTE | 2018-08-23 09:03 | NUR ---
08/23/18 PLEASE REFER TO NUTRITION PROGRESS NOTE UNDER CARE ACTIVITY FOR ESTIMATED NUTRITION NEEDS. RD RECOMMENDATIONS: 1.CONTINUE NPO PER FAMILY�S REQUEST. 2.IF/WHEN FAMILY DESIRES TO RESUME TUBE FEEDINGS, CONSIDER RESUMING VITAL 1.2 AT 40 ML/HR AND 60 ML WATER FLUSH Q4H. THIS WILL PROVIDE A VOLUME OF 960 ML, 1152 KCAL, 72 GM OF PROTEIN AND 1138 ML FLUID. IT MEETS 100% OF THE ENERGY AND PROTEIN REQUIREMENT. 2. RECOMMEND MVI 3. RD TO FOLLOW-UP 2-3 DAYS, HIGH RISK BILL GALLEGOS, MS, RDN
[2018-08-23] MEDS: LACTOBACILLUS RHAMNOSUS GG 1 EACH CAP PO SCH (09:06)
[2018-08-23] MEDS: BACLOFEN 10 MG TAB GT SCH (09:06)
[2018-08-23] MEDS: OSELTAMIVIR PHOSPHATE 75 MG CAP PO SCH ×2 (09:06→20:55)
[2018-08-23] MEDS: clonazePAM 0.5 MG TAB GT SCH ×2 (09:31→20:57)
--- NOTE | 2018-08-23 10:01 | NUR ---
PT HAD LARGE, LOOSE, BROWN BM AFTER FLEET ENEMA.
--- NOTE | 2018-08-23 10:04 | NUR ---
ASKED DR. MENDOILA TO ORDER SCD- HAVE BEEN HOLDING HEPARIN D/T LOW PLT COUNT. ALSO NOTIFIED DR. MENDIOLA OF LOW K+ AND LOW PHOSPHORUS.
--- NOTE | 2018-08-23 10:28 | NUR ---
RT IJ CENTRAL LINE DRESSING CHANGED. OLD BIOPATCH WAS SATURATED WITH BLOOD. NO ACTIVE BLEEDING NOTED. WILL CONTINUE TO MONITOR.
--- NOTE | 2018-08-23 11:50 | NUR ---
PER PHARMACY, DR. MENDIOLA AWARE OF HIGH TEGRETOL LEVEL AND OKAY TO ADMINISTER SCHEDULED 1300 DOSE.
[2018-08-23 12:00] VITALS: BP 129/79
[2018-08-23] MEDS: carBAMazepine 200 MG TAB PO SCH ×2 (12:27→20:56)
--- NOTE | 2018-08-23 12:39 | NUR ---
PATIENT'S MOTHER REFUSED PHENOBARBITAL FOR 1300. STATES THAT THEIR HOME MED SCHEDULE FOR PHENOBARBITAL IS 1000, 1500, 2330. MOTHER ALSO GAVE SPECIFIC CHILD NUTRITION ASSISTANT SCHEDULE FOR CLONOPIN AND BACLOFEN. WILL ASK PHARMACY IS IF IT POSSIBLE TO ACCOMMODATE.
--- NOTE | 2018-08-23 13:02 | NUR ---
NOTIFIED PHARMACIST OF PATIENT'S MEDICATION ADMINISTRATION SCHEDULE AT HOME- PER MOTHER AT BEDSIDE. PHARMACIST TO CALL
[2018-08-23] MEDS ORDERED: SODIUM PHOSPHATE 118 ML ENEM RC PRN (14:05)
[2018-08-23] MEDS ORDERED: POTASSIUM CHLORIDE 20% 40 MEQ/15 ML UDC GT SCH (14:30)
[2018-08-23] MEDS ORDERED: SODIUM PHOS / POTASSIUM PHOS 1 PKT PDR GT SCH (14:30)
[2018-08-23] MEDS: KCL 20 MEQ/WATER INJ PREMIX 100 ML IV SCH ×2 (14:46→17:09)
--- NOTE | 2018-08-23 15:06 | NUR ---
PLATE GLASS INSTALLER HELPER HERE FOR CXR.
[2018-08-23 16:00] VITALS: BP 136/87
--- NOTE | 2018-08-23 19:21 | NUR ---
ENDORSED POC TO WOODS OVERSEER RN. PT IN STABLE CONDITION.
--- NOTE | 2018-08-23 19:22 | NUR ---
REPORT RECEIVED FROM AM NURSE AT BEDSIDE. PT IN STABLE CONDITION. AAOX1. INTRODUCED SELF TO PT FAMILY. BOARD UPDATED. FLACC 0. NO SOB ON 2L O2 VIA HUMIDIFIED NC. AFEBRILE@97.1. IV SITE L IJ TRIPLE LUMEN. ALL PORTS FLUSH WELL PATENT AND INTACT. PT HAS GTUBE PATENT AND INTACT. SKIN WARM, DRY, AND INTACT WITH NO OPEN WOUNDS. BED LOCKED IN LOW POSITION. CALL DENNEY WITHIN REACH. SAFETY PRECAUTIONS IN PLACE. SEIZURE PRECAUTIONS IN PLACE. ALL NEEDS MET AT THIS TIME.
--- NOTE | 2018-08-23 19:40 | NUR ---
PT RECEIVING BREATHING TREATMENT WITH RT.
--- NOTE | 2018-08-23 19:51 | NUR ---
RECEIVED PATIENT ON 2L NC, PULSE OX SAT 99%. FAMILY AT BEDSIDE. SCHEDULED BREATHING TREATMENTS ADMINISTERED. CPT GIVEN WITH TREATMENT. PATIENT TOLERATED WELL. NO ADVERSE SIDE EFFECTS. NO RESPIRATORY DISTRESS NOTED. WILL CONTINUE TO MONITOR.
[2018-08-23 20:00] VITALS: BP 121/84
--- NOTE | 2018-08-23 20:56 | NUR ---
KLONIPIN, TAMIFLU, AND TEGRETOL GIVEN THROUGH GTUBE. ZOSYN HUNG AND RUNNING. PT TOLERATED WELL.
--- NOTE | 2018-08-23 21:00 | NUR ---
LIORESAL GIVEN THROUGH GTUBE. PT TOLERATED WELL.
[2018-08-23] MEDS ORDERED: BACLOFEN 10 MG TAB GT SCH (22:00)
--- NOTE | 2018-08-23 22:38 | NUR ---
PHENOBARBITAL GIVEN THROUGH GTUBE. PT TOLERATED WELL.
--- NOTE | 2018-08-23 23:26 | NUR ---
FAMILY AT BEDSIDE. SCHEDULED BREATHING TREATMENTS ADMINISTERED. CHEST PHYSIOTHERAPY DONE WITH BREATHING TREATMENTS. TOLERATED THERAPY WELL. PLACED PATIENT BACK ON 2L NC. NO DISTRESS NOTED AT THIS TIME. WILL CONTINUE TO MONITOR.
[2018-08-24] VITALS: BP 118/69
--- NOTE | 2018-08-24 01:00 | NUR ---
PT SLEEPING COMFORTABLY IN BED SUPINE WITH MOTHER AT BEDSIDE. NO S/S OF DISTRESS NOTED. BREATHING EVEN, UNLABORED, AND WNL. WILL CONTINUE TO MONITOR.
[2018-08-24] MEDS: DEXT 5% /NACL 0.9% 1,000 ML IV SCH (02:00)
--- NOTE | 2018-08-24 02:15 | NUR ---
PT SLEEPING COMFORTABLY IN BED. NO S/S OF DISTRESS NOTED. WILL CONTINUE TO MONITOR.
[2018-08-24] MEDS: ACETYLCYSTEINE 10% (100 MG/ML) 100 MG/ML VIAL INH SCH ×3 (03:23→11:00)
[2018-08-24] MEDS: ALBUTEROL SULFATE/IPRATROPIU 3 ML SOL IH SCH ×3 (03:23→10:59)
--- NOTE | 2018-08-24 03:56 | NUR ---
SCHEDULED BREATHING TREATMENTS ADMINISTERED. CPT DONE DURING TREATMENTS. ORALLY SUCTIONED MODERATE AMOUNT OF SPONTANEOUSLY EXPECTORATED, THICK, YELLOW SECRETIONS. DURING TREATMENT, PATIENTS HEART RATE INCREASED FROM 113 138. TREATMENT STOPPED. MOTHER AT BEDSIDE AWARE. RN AWARE. PLACED BACK ON 2L NC. WILL CONTINUE TO MONITOR.
[2018-08-24 04:00] VITALS: BP 128/86
[2018-08-24] MEDS: PIPER/TAZO 3.375GM/D5W PREMIX 50 ML IV SCH (04:22)
--- NOTE | 2018-08-24 04:22 | NUR ---
JESUSSYN HUNG AND RUNNING. PT TOLERATING WELL. ATTEMPTED TO GIVE TEGRETOL BUT MOTHER SAID TO BRING IT LATER@0600. OPENED 1 PILL AND DROPPED IT. WILL PULL ANOTHER PILL BEFORE 0600.
[2018-08-24] MEDS: carBAMazepine 200 MG TAB PO SCH ×2 (04:29→05:41)
--- NOTE | 2018-08-24 05:41 | NUR ---
TEGRETOL GIVEN THROUGH GTUBE. PT TOLERATED WELL.
--- NOTE | 2018-08-24 06:30 | NUR ---
RT ASKED PT MOM IF SHE WANTED A BREATHING TX FOR HER SON. SHE SAID NO DUE TO HIS INCREASED HR.
--- NOTE | 2018-08-24 06:33 | NUR ---
MOM AT BEDSIDE REFUSED BREATHING TX AND CPT NOW DUE TO HIGH HEART RATE OF 149 BPM TOLD PT'S MOM TO CALL ME WHEN SHE WANTED THE BREATHING TX DONE NO SIGNS OF DISTRESS NOTED AT THIS TIME
--- NOTE | 2018-08-24 07:05 | NUR ---
REPORT GIVEN TO AM NURSE AT BEDSIDE. PT IN STABLE CONDITION.
--- NOTE | 2018-08-24 07:06 | NUR ---
RECEIVED REPORT FROM COMPRESSOR STATION ENGINEER CHIEF NURSE. PATIENT LYING DOWN IN BED SLEEPING, AROUSABLE BY VOICE. MOTHER AT BEDSIDE. NO DISTRESS NOTED. RESPIRATIONS EVEN, UNLABORED, ON O2 2L/MIN VIA NC. LUNGS WHEEZING THROUGHOUT ALL LOBES. AAOX1, APHASIC, SKIN COLOR APPROPRIATE TO ETHNICITY, WARM TO TOUCH. SKIN IS INTACT. GTUBE IN PLACE, PATENT. ABDOMEN SOFT, NON-DISTENDED. REVIEWED PLAN OF CARE WITH PATIENT/MOTHER AT BEDSIDE. MOTHER VERBALIZED UNDERSTANDING. SAFETY MEASURES IN PLACE, CALL LIGHT WITHIN REACH. WILL CONTINUE TO MONITOR.
[2018-08-24 07:14] LABS: ANION GAP 9.5 (8-16); BASOPHILS % (AUTO) 0.1 % (0.0-2.0); CARBON DIOXIDE 31.6 mmol/L (21-32); CREATININE 0.8 mg/dL (0.7-1.3); EOSINOPHILS % (AUTO) 0.2 % (0.0-4.0); HEMATOCRIT 34.1 % (36-52); HEMOGLOBIN 11.5 g/dL (12.0-18.0); LYMPHOCYTES # (AUTO) 0.8 K/uL (2.0-11.5); LYMPHOCYTES % (AUTO) 15.1 % (20.5-51.1); MEAN CORPUSCULAR HEMOGLOBIN 32 pg (27-31); MEAN CORPUSCULAR HGB CONC 34 g/dL (33-37); MEAN CORPUSCULAR VOLUME 94.9 fL (80-94); MONOCYTES # (AUTO) 0.4 K/uL (0.8-1.0); NEUTROPHILS # (AUTO) 4.2 K/uL (1.8-7.7); NEUTROPHILS % (AUTO) 76.6 % (42.2-75.2); PLATELET COUNT (AUTO) 59 K/uL (140-450); POTASSIUM 4.1 mmol/L (3.5-5.1); RED BLOOD CELL COUNT(AUTO) 3.59 MIL/uL (4.20-6.10); RED CELL DISTRIBUTION WIDTH 14.5 % (11.6-13.7); WHITE BLOOD COUNT (AUTO) 5.5 K/uL (4.8-10.8)
[2018-08-24 07:20] LABS: MAGNESIUM 1.3 mg/dL (1.8-2.4); PHOSPHORUS 2.2 mg/dL (2.5-4.9)
[2018-08-24 08:00] VITALS: BP 126/76
[2018-08-24] MEDS ORDERED: SODIUM PHOS / POTASSIUM PHOS 1 PKT PDR GT SCH (09:00)
[2018-08-24] MEDS: LACTOBACILLUS RHAMNOSUS GG 1 EACH CAP PO SCH (09:29)
[2018-08-24] MEDS: clonazePAM 0.5 MG TAB GT SCH (09:29)
[2018-08-24] MEDS: OSELTAMIVIR PHOSPHATE 75 MG CAP PO SCH (09:30)
--- NOTE | 2018-08-24 09:33 | NUR ---
PATIENT LYING DOWN IN BED COMFORTABLY. NO DISTRESS NOTED. MOTHER AT BEDSIDE. SCHEDULED MEDICATIONS DUE GIVEN. WILL CONTINUE TO MONITOR.
[2018-08-24] MEDS ORDERED: SODIUM PHOS / POTASSIUM PHOS 1 PKT PDR PO SCH ×2 (10:33→21:00)
--- NOTE | 2018-08-24 10:45 | NUR ---
PATIENT LYING DOWN IN BED. FAMILY MEMBERS AT BEDSIDE. CONDITION UNCHANGED. SCHEDULED MEDICATIONS DUE GIVEN. WILL CONTINUE TO MONITOR.
[2018-08-24] MEDS ORDERED: MAG SULF 2000 MG/WATER PREMIX 100 ML IV SCH (11:00)
[2018-08-24] MEDS ORDERED: TAM75 PO (11:13)
[2018-08-24] MEDS ORDERED: LACT10CA PO (11:13)
[2018-08-24] MEDS ORDERED: LEVO750T2 GT (11:13)
[2018-08-24] MEDS ORDERED: FER300L GT (11:13)
[2018-08-24] MEDS ORDERED: CARB100S GT (11:13)
[2018-08-24] MEDS ORDERED: ASCO-672 GT (11:13)
[2018-08-24] MEDS ORDERED: DOCU-299 PO (11:13)
--- NOTE | 2018-08-24 12:20 | NUR ---
DISCHARGE INSTRUCTIONS GIVEN TO PATIENT/FAMILY AT BEDSIDE IN PREFERRED LANGUAGE OF INDONESIAN. FOLLOW-UP VISIT WITH PCP, NEW/CHANGED MEDICATIONS, DIET REGIMEN, AND DISEASE PROCESS/MANAGEMENT OF PNEUMONIA PROVIDED. ANSWERED ALL OF PATIENT/FAMILY QUESTIONS REGARDING DISCHARGE. ID BANDS REMOVED. CENTRAL LINE REMOVED WITH MINIMAL BLOOD AND LUMEN COMPLETELY INTACT. ALL BELONGINGS WITH PATIENT. PATIENT ALREADY DRESSED AND READY TO GO. ESCORTED PATIENT DOWN TO LOBBY VIA FAMILY OWN WHEELCHAIR. PATIENT DISCHARGED AT THIS TIME TO HOME IN PRIVATE VEHICLE IN STABLE CONDITION.
[2018-08-24] MEDS ORDERED: FERROUS SULFATE 300 MG/5 ML UDC GT SCH (21:00)
[2018-08-24] MEDS ORDERED: ASCORBIC ACID 500 MG TAB GT SCH (21:00)
[2018-08-24] MEDS ORDERED: ASCORBIC ACID 500 MG/5 ML ORASYR GT SCH (21:00)
[2018-08-25 10:00] LABS: FERRITIN 1197 ng/mL (30 - 400); TRANSFERRIN 144 mg/dL (200 - 370)
== END 2018-08-24 12:20 | disposition home or self-care (01) | DRG 720 ==
LOC: MED 15:04 → MTU 17:26
PROVIDERS: ADMIT General Practice; ATTEND General Practice
PROC: 02HV33Z Insertion of Infusion Device into Superior Vena Cava, Percutaneous Approach (ICD-10-PCS; principal; 2018-08-20)
PROC: B548ZZA Ultrasonography of Superior Vena Cava, Guidance (ICD-10-PCS; 2018-08-20)
DX: A41.9 Sepsis, unspecified organism (principal); J69.0 Pneumonitis due to inhalation of food and vomit; E43 Unspecified severe protein-calorie malnutrition; J10.00 Influenza due to other identified influenza virus with unspecified type of pneumonia; J15.0 Pneumonia due to Klebsiella pneumoniae; J96.01 Acute respiratory failure with hypoxia; D68.59 Other primary thrombophilia; J15.1 Pneumonia due to Pseudomonas; E83.42 Hypomagnesemia; E87.1 Hypo-osmolality and hyponatremia; E87.8 Other disorders of electrolyte and fluid balance, not elsewhere classified; G80.9 Cerebral palsy, unspecified; Z68.1 Body mass index [BMI] 19.9 or less, adult; E86.0 Dehydration; E86.1 Hypovolemia; G40.909 Epilepsy, unspecified, not intractable, without status epilepticus; R65.20 Severe sepsis without septic shock; R13.10 Dysphagia, unspecified; D64.9 Anemia, unspecified; E83.51 Hypocalcemia
CPT/HCPCS: 36415; 36600; 71045; 74018; 80048; 80053; 80156; 80184; 81001; 82150; 82550; 82553; 82607; 82728; 82746; 82803; 83036; 83540; 83605; 83690; 83735; 83874; 83880; 84100; 84443; 84484; 85025; 85045; 85610; 85730; 87040; 87070; 87081; 87086; 87186; 87205; 87804; 94640; 94667; 99285; C1758; J1642; J1644; J2060; J2543; J3475; J3480; J7030; J7042; J7620; Q0092